=== PATIENT | female | born 1970 | race Caucasian/White ===

== ENCOUNTER 2020-06-10 12:04 | Inpatient (IN) | payer BC ==
[~2020-06-10] VITALS: Ht 162.6 cm; Wt 131.5 kg
[2020-06-10 13:18] LABS: BASOPHILS # (AUTO) 0.1 K/uL (0.0-8.0); BASOPHILS % (AUTO) 0.8 % (0.0-2.0); EOSINOPHILS # (AUTO) 0.2 K/uL (0.0-0.7); EOSINOPHILS % (AUTO) 2.3 % (0.0-7.0); HEMATOCRIT 33.5 % (31.2-41.9); HEMOGLOBIN 10.6 g/dL (10.9-14.3); LYMPHOCYTES # (AUTO) 1.1 K/uL (20.0-40.0); LYMPHOCYTES % (AUTO) 15.5 % (20.5-51.5); MEAN CORPUSCULAR HEMOGLOBIN 21.8 uug (24.7-32.8); MEAN CORPUSCULAR HGB CONC 32 g/dL (32.3-35.6); MEAN CORPUSCULAR VOLUME 68.6 fL (75.5-95.3); MONOCYTES # (AUTO) 0.5 K/uL (2.0-10.0); MONOCYTES % (AUTO) 6.4 % (0.0-11.0); NEUTROPHILS # (AUTO) 5.5 K/uL (1.8-8.9); PLATELET COUNT (AUTO) 449 K/uL (179-408); RED BLOOD CELL COUNT(AUTO) 4.88 MIL/uL (3.63-4.92); WHITE BLOOD COUNT (AUTO) 7.3 K/uL (3.8-11.8)
[2020-06-10 13:24] LABS: CARBON DIOXIDE 26 mmol/L (21-32); CHLORIDE 105 mmol/L (98-107); CREATININE 1.1 mg/dL (0.6-1.3); GLUCOSE 100 mg/dL (74-106); POTASSIUM 4.3 mmol/L (3.5-5.1); UREA NITROGEN, BLOOD 13 mg/dL (7-18)
[2020-06-10 13:30] LABS: ALANINE AMINOTRANSFERASE 30 U/L (14-59); ALKALINE PHOSPHATASE 108 U/L (50-136); ASPARTATE AMINOTRANSFERASE 23 U/L (15-37); BILIRUBIN,DIRECT < 0.1 mg/dL (0.0-0.2); BILIRUBIN,TOTAL 0.2 mg/dL (0.2-1.0)
[2020-06-10] MEDS ORDERED: methylPREDNISolone SOD SUCC 1,000 MG in IV DEXTROSE 5% 250 ML IV ONE (13:30)
[2020-06-10 13:52] LABS: THYROID STIMULATING HORMONE 4.144 mIU/mL (0.358-3.740)
[2020-06-10] MEDS ORDERED: GABAPENTIN 400 MG CAPSULE PO STA (15:31)
[2020-06-10] MEDS ORDERED: GABAPENTIN 400 MG CAPSULE ONE (15:46)
[2020-06-10] MEDS ORDERED: Z GUARD REMEDY PASTE 57 GM TUBE TOP PRN (16:00)
[2020-06-10] MEDS ORDERED: ASPIRIN 81 MG TAB.CHEW PO ONE (16:00)
[2020-06-10] MEDS ORDERED: INSULIN REGULAR, HUMAN 300 UNIT/3 ML VIAL SQ PRN (16:00)
[2020-06-10] MEDS ORDERED: DEXTROSE 50% 50 ML DISP.SYRIN IV PRN (16:00)
[2020-06-10] MEDS ORDERED: MAGNESIUM HYDROXIDE 30 ML LIQUID UDC PO PRN (16:00)
[2020-06-10] MEDS ORDERED: ONDANSETRON 4 MG/2 ML VIAL IV PRN (16:00)
[2020-06-10] MEDS ORDERED: ACETAMINOPHEN 325 MG TABLET PO PRN (16:00)
[2020-06-10] MEDS ORDERED: LORA10TA7 PO (16:19)
[2020-06-10] MEDS ORDERED: [UNRECOGNIZED DRUG - OTHER] PO (16:19)
[2020-06-10] MEDS ORDERED: BUPR200T PO (16:19)
[2020-06-10] MEDS ORDERED: SERT100T PO (16:19)
[2020-06-10] MEDS ORDERED: CLOM25CA4 PO (16:19)
[2020-06-10] MEDS ORDERED: [UNRECOGNIZED DRUG - CODE] PO (16:19)
[2020-06-10] MEDS ORDERED: LIDO30CR TP ×2 (16:19)
[2020-06-10] MEDS ORDERED: LEVO50TA8 PO (16:19)
[2020-06-10] MEDS ORDERED: SIMV-46 PO (16:19)
[2020-06-10] MEDS ORDERED: VALTREX PO (16:19)
[2020-06-10] MEDS ORDERED: GABA800T11 PO (16:19)
[2020-06-10] MEDS ORDERED: PROP60CA38 PO (16:19)
[2020-06-10] MEDS ORDERED: LISD70CA PO (16:19)
[2020-06-10] MEDS ORDERED: ERGO800011 PO (16:19)
[2020-06-10] MEDS ORDERED: BLOOD SUGAR DIAGNOSTIC 1 EACH STRIP VI SCH (16:30)
[2020-06-10] MEDS ORDERED: ONDANSETRON 4 MG/2 ML VIAL IV ONE (17:15)
[2020-06-10] MEDS ORDERED: HYDROMORPHONE 1 MG/1 ML DISP.SYRIN IV ONE ×3 (17:15→20:15)
[2020-06-10] MEDS ORDERED: HYDROMORPHONE 1 MG/1 ML DISP.SYRIN ONE ×3 (17:58→20:41)
[2020-06-10] MEDS ORDERED: ONDANSETRON 4 MG/2 ML VIAL ONE (20:41)
[2020-06-10] MEDS ORDERED: ENOXAPARIN SODIUM 40 MG/0.4 ML DISP.SYRIN SQ SCH (21:00)
[2020-06-10] MEDS ORDERED: GABAPENTIN 100 MG CAPSULE PO ONE (22:30)
[2020-06-10] MEDS ORDERED: GABAPENTIN 100 MG CAPSULE ONE (22:36)
[2020-06-10] MEDS ORDERED: GABAPENTIN 300 MG CAPSULE ONE (23:15)
[2020-06-10] MEDS ORDERED: GABAPENTIN 300 MG CAPSULE PO ONE (23:15)
[2020-06-11 00:20] VITALS: BP 109/51
[2020-06-11] MEDS: HYDROCODONE/APAP 5-325MG TABLET PO PRN ×3 (00:48→09:54)
[2020-06-11] MEDS ORDERED: ONDANSETRON 4 MG/2 ML VIAL IM PRN (01:15)
[2020-06-11 04:00] VITALS: BP 102/51
[2020-06-11 06:37] LABS: CREATININE 1.4 mg/dL (0.6-1.3); PHOSPHOROUS 3.3 mg/dL (2.5-4.9); POTASSIUM 4.2 mmol/L (3.5-5.1)
[2020-06-11 06:41] LABS: THYROID STIMULATING HORMONE 0.978 mIU/mL (0.358-3.740)
[2020-06-11 06:55] LABS: HEMATOCRIT 32.3 % (31.2-41.9); HEMOGLOBIN 10.1 g/dL (10.9-14.3); LYMPHOCYTES # (AUTO) 0.7 K/uL (20.0-40.0); LYMPHOCYTES % (AUTO) 4.5 % (20.5-51.5); MEAN CORPUSCULAR HEMOGLOBIN 21.9 uug (24.7-32.8); MEAN CORPUSCULAR HGB CONC 31 g/dL (32.3-35.6); MEAN CORPUSCULAR VOLUME 69.7 fL (75.5-95.3); MONOCYTES # (AUTO) 0.1 K/uL (2.0-10.0); MONOCYTES % (AUTO) 0.5 % (0.0-11.0); NEUTROPHILS # (AUTO) 14.9 K/uL (1.8-8.9); PLATELET COUNT (AUTO) 478 K/uL (179-408); RED BLOOD CELL COUNT(AUTO) 4.63 MIL/uL (3.63-4.92); WHITE BLOOD COUNT (AUTO) 15.7 K/uL (3.8-11.8)
[2020-06-11] MEDS ORDERED: PANTOPRAZOLE SODIUM 40 MG TABLET.DR PO SCH (07:00)
[2020-06-11] MEDS ORDERED: buPROPion SR 100 MG TABLET.SA PO SCH (09:00)
[2020-06-11] MEDS ORDERED: methylPREDNISolone SOD SUCC 1,000 MG in IV DEXTROSE 5% 250 ML IV SCH (09:00)
[2020-06-11] MEDS ORDERED: methylPREDNISolone SOD SUCC 125 MG/2 ML VIAL IV SCH (09:00)
[2020-06-11] MEDS ORDERED: LORATADINE 10 MG TABLET PO SCH (09:00)
[2020-06-11] MEDS ORDERED: GABAPENTIN 400 MG CAPSULE PO SCH (09:00)
[2020-06-11] MEDS ORDERED: SERTRALINE HCL 100 MG TABLET PO SCH (09:00)
[2020-06-11] MEDS ORDERED: LEVOTHYROXINE SODIUM 50 MCG TABLET PO SCH (09:00)
[2020-06-11 11:54] LABS: LYMPHOCYTES % (MANUAL) 4 % (20-40); MONOCYTES % (MANUAL) 1 % (2-10); NEUTROPHILS % (MANUAL) 95 % (42-75)
[2020-06-11] MEDS ORDERED: PROPRANOLOL LA 60 MG CAP.SA.24H PO SCH (18:00)
[2020-06-11] MEDS ORDERED: SIMVASTATIN 20 MG TABLET PO SCH (21:00)
[2020-06-15] MEDS ORDERED: ERGOCALCIFEROL 50,000 UNIT CAPSULE PO SCH (09:00)
== END 2020-06-11 12:10 | disposition left against medical advice (07) | DRG 58 ==
LOC: ER 12:04 → TELE3 23:55
PROC: 2W3BX1Z Immobilization of Left Upper Arm using Splint (ICD-10-PCS; principal; 2020-06-10)
DX: G35 Multiple sclerosis (principal); N17.0 Acute kidney failure with tubular necrosis; S42.295A Other nondisplaced fracture of upper end of left humerus, initial encounter for closed fracture; Z68.42 Body mass index [BMI] 45.0-49.9, adult; W18.30XA Fall on same level, unspecified, initial encounter; Y92.89 Other specified places as the place of occurrence of the external cause; F50.81 Binge eating disorder; D64.9 Anemia, unspecified; E03.9 Hypothyroidism, unspecified; E66.9 Obesity, unspecified; E78.5 Hyperlipidemia, unspecified; I10 Essential (primary) hypertension; Z88.0 Allergy status to penicillin; Z88.2 Allergy status to sulfonamides; R26.81 Unsteadiness on feet; D32.9 Benign neoplasm of meninges, unspecified; M85.88 Other specified disorders of bone density and structure, other site
CPT/HCPCS: 36415; 70030-TC; 70450; 71045; 72170; 73030; 73080; 73502; 83735; 84100; 84443; 85025; 93005; A4663; G0378; J1170; J1650; J1815; J2405; J2930; J7050; J7060; U0003-CS